=== PATIENT | female | born 2005 | race Hispanic/Latino ===

== ENCOUNTER → 2024-01-19 09:37 | Outpatient (REF) | payer OTHER, SELFPAY ==
[2024-01-19 10:28] LABS: % Basophils 0.2 % (0-2); % Immature Granulocytes 0.3 % (0-0.5); % Lymphocytes 37.3 % (20.5-51.1); % Monocytes 7.6 % (1.7-9.3); % Neutrophils 53.6 % (42.2-75.2); Absolute Eosinophils 0.1 10^3/uL (0-0.7); Absolute Lymphocytes 2.2 10^3/uL (1.2-3.4); Absolute Monocytes 0.4 10^3/uL (0.1-0.6); Absolute Neutrophils 3.1 10^3/uL (1.4-6.5); Hematocrit 39.3 % (37.0-47.0); Hemoglobin 13.3 g/dL (12.0-16.0); Mean Corp Hgb Conc. 33.8 g/dL (33.0-37.0); Mean Corpuscular Hgb 31.6 pg (27.0-31.0); Mean Corpuscular Volume 93.3 fL (81.0-99.0); Mean Platelet Volume 10.3 fL (7.4-10.4); Nucleated Red Blood Cells % 0 %; Platelet Count 276 10^3/uL (130-400); Red Blood Cell Count 4.21 10^6/uL (4.20-5.40); Red Cell Dist. Width 12.8 % (11.5-14.5); White Blood Cell Count 5.8 10^3/uL (4.8-10.8)
[2024-01-19 10:39] LABS: ALT (SGPT) 43 U/L (0-35); AST (SGOT) 43 U/L (14-36); Albumin 4.6 g/dl (3.5-5.0); Alkaline Phosphatase 79 U/L (38-126); Blood Urea Nitrogen 12 mg/dl (7-17); Calcium 9.5 mg/dl (8.4-10.2); Carbon Dioxide 26 mmol/L (22-30); Chloride 103 mmol/L (98-107); Glucose 86 mg/dl (70-99); Sodium 133 mmol/L (135-145); Total Bilirubin 1.4 mg/dl (0.2-1.3); Total Protein 7.4 g/dl (6.3-8.2); eGFR > 60.00
[2024-01-19 11:25] LABS: Vitamin D, 25-OH*** 26.7 ng/mL (30-80)
[2024-01-19 11:38] LABS: TSH Reflex To Free T4 1.34 uIU/ml (0.47-4.68)
[2024-01-19 12:15] LABS: Folate 11.2 ng/ml (2.76-20); Vitamin B12 532 pg/ml (239-931)
[2024-01-20 23:59] LABS: Ceruloplasmin 20 mg/dL (16-45)
[2024-01-21 08:03] LABS: Copper, Serum 79.6 ug/dL (80.0-155.0); Zinc 69.2 ug/dL (60.0-120.0)
== END ==
LOC: CLINIC 09:37
PROVIDERS: ATTENDING PHYSICIAN Family Medicine
DX: Z00.00 Encounter for general adult medical examination without abnormal findings (principal); G47.9 Sleep disorder, unspecified
CPT/HCPCS: 36415; 80053; 82306; 82390; 82525; 82607; 82746; 83088; 84443; 84630; 85025

== ENCOUNTER → 2025-06-24 11:30 | Outpatient (REF) | payer OTHER, SELFPAY ==
[2025-06-24 13:08] LABS: Urine Character Slightly Cloudy (Clear)
[2025-06-24 13:09] LABS: Hematocrit 40.3 % (37.0-47.0); Hemoglobin 13.7 g/dL (12.0-16.0); Mean Corp Hgb Conc. 34.0 g/dL (33.0-37.0); Mean Corpuscular Volume 94.4 fL (81.0-99.0); Nucleated Red Blood Cells % 0 %; Platelet Count 290 10^3/uL (130-400); Red Cell Dist. Width 12.4 % (11.5-14.5)
[2025-06-24 13:29] LABS: Urine Red Blood Cell 0-2 /HPF (0-2); Urine Squamous Cell 16-20 /LPF (Few)
[2025-06-24 13:57] LABS: ALT (SGPT) 15 U/L (0-35); AST (SGOT) 26 U/L (14-36); Albumin 4.4 g/dl (3.5-5.0); Alkaline Phosphatase 46 U/L (38-126); Blood Urea Nitrogen 7 mg/dl (7-17); Calcium 9.1 mg/dl (8.4-10.2); Carbon Dioxide 24 mmol/L (22-30); Chloride 105 mmol/L (98-107); Glucose 83 mg/dl (70-99); Potassium 4.8 mmol/L (3.5-5.1); Sodium 136 mmol/L (135-145); Total Protein 7.2 g/dl (6.3-8.2); eGFR > 60.00
[2025-06-24 14:16] LABS: TSH 0.77 uIU/ml (0.47-4.68)
[2025-06-25 13:10] LABS: tTG IgA Antibody 4.2 EU/ml (0-19); tTG IgG Antibody 1.4 EU/ml (0-19)
== END ==
LOC: REG 11:30
PROVIDERS: ATTENDING PHYSICIAN Physician Assistant Medical
DX: Z00.00 Encounter for general adult medical examination without abnormal findings (principal); R35.0 Frequency of micturition
CPT/HCPCS: 36415; 80053; 81003; 81015; 82784; 83516; 84443; 85025; 86231

== ENCOUNTER → 2025-07-16 12:51 | Outpatient (REF) | payer OTHER, SELFPAY | LOC: CLINIC 12:51 | PROVIDERS: ATTENDING PHYSICIAN Physician Assistant Medical | DX: Z00.00 Encounter for general adult medical examination without abnormal findings (principal); R35.0 Frequency of micturition | CPT/HCPCS: 76700; 76856 ==